=== PATIENT | female | born 1965 | race African-American/Black ===

== ENCOUNTER 2018-08-20 12:15 | Emergency (ER) | payer OTHER ==
[~2018-08-20] VITALS: Ht 170.2 cm; Wt 176.9 kg
[2018-08-20] MEDS ORDERED: KETOROLAC 60 MG/2 ML VIAL. IM ONE (13:00)
[2018-08-20] MEDS ORDERED: MORPHINE SULFATE 4 MG/ML VIAL. IM ONE (13:00)
[2018-08-20] MEDS ORDERED: ONDANSETRON ODT 4 MG TAB.RAPDIS. PO ONE (13:15)
--- NOTE | 2018-08-20 13:25 | PHYS DOC ---
Past Medical History Past Medical History: Diabetes-Type II, Hypertension Past Surgical History: No Surgical History Alcohol Use: None Drug Use: None Adult General Chief Complaint Chief Complaint: LOWER EXT PAIN HPI HPI Patient is a 52 year old female presents to the ED complaining of left-sided back pain. Patient states that she's had pain from the left side of her back that radiates down her left leg. Patient states she feels like its sciatica. Describes the pain as sharp. Rates the pain as 9 out of 10. Patient is able to ambulate without assistance. Denies injury, nausea/vomiting, chest pain, shortness of breath, weakness, paresthesias, Pain/swelling or fever. Review of Systems Review of Systems Constitutional: Denies fever or chills [] Eyes: Denies change in visual acuity, redness, or eye pain [] HENT: Denies nasal congestion or sore throat [] Respiratory: Denies cough or shortness of breath [] Cardiovascular: No additional information not addressed in HPI [] GI: Denies abdominal pain, nausea, vomiting, bloody stools or diarrhea [] : Denies dysuria or hematuria [] Musculoskeletal: Denies back pain or joint pain [] Integument: Denies rash or skin lesions [] Neurologic: Denies headache, focal weakness or sensory changes [] All other systems were reviewed and found to be within normal limits, except as documented in this note. Current Medications Current Medications Current Medications Medications (Trade) Dose Ordered Sig/Julius Start Time Stop Time Status Last Admin Dose Admin Ketorolac Tromethamine (Toradol Im) 60 mg 1X ONCE 08/20/18 13:00 08/20/18 13:01 DC 08/20/18 13:36 60 MG Morphine Sulfate (Morphine Sulfate) 4 mg 1X ONCE 08/20/18 13:00 08/20/18 13:01 DC 08/20/18 13:32 4 MG Ondansetron HCl (Zofran Odt) 4 mg 1X ONCE 08/20/18 13:15 08/20/18 13:16 DC 08/20/18 13:28 4 MG Allergies Allergies Allergies Coded Allergies Type Severity Reaction Last Updated Verified amoxicillin Allergy Severe Swelling 08/20/18 Yes Physical Exam Physical Exam Constitutional: Well developed, well nourished, no acute distress, non-toxic ap pearance. [] HENT: Normocephalic, atraumatic Eyes: PERRLA, EOMI, conjunctiva normal, no discharge. [] Neck: Normal range of motion, no tenderness, supple, no stridor. [] Cardiovascular:Heart rate regular rhythm, no murmur [] Lungs & Thorax: Bilateral breath sounds clear to auscultation [] Abdomen: Bowel sounds normal, soft, no tenderness, no masses, no pulsatile masses. [] Skin: Warm, dry, no erythema, no rash. [] Back: No bony tenderness, pain radiates down left leg in sciatic nerve distribution. FROM. NV intact. No overlying skin changes. no CVA tenderness. [] Extremities: No tenderness, no cyanosis, no clubbing, ROM intact, no edema. [] Neurologic: Alert and oriented X 3, normal motor function, normal sensory function, no focal deficits noted. [] Psychologic: Affect normal, judgement normal, mood normal. [] Current Patient Data Vital Signs Vital Signs Date Time Temp Pulse Resp B/P (MAP) Pulse Ox O2 Delivery O2 Flow Rate FiO2 08/20/18 14:05 150/98 (115) 08/20/18 13:32 18 96 Room Air 08/20/18 12:46 97.7 86 97.7 EKG EKG [] Radiology/Procedures Radiology/Procedures [] Course & Med Decision Making Course & Med Decision Making Pertinent Labs and Imaging studies reviewed. (See chart for details) []No bony tenderness. No imaging warranted. Patient's pain improved in the ED. States she is feeling much better. Patient able to ambulate without assistance. No focal neural deficits. Discussed symptomatic treatment and follow-up with orthopedics if pain persists. Provided contact information/education. Discussed reasons to return to the ED. Patient understands and agrees with plan. Dragon Disclaimer Dragon Disclaimer This electronic medical record was generated, in whole or in part, using a voice recognition dictation system. Departure Departure Impression: Primary Impression: Sciatica Disposition: 01 HOME, SELF-CARE Condition: IMPROVED Referrals: ALLY SCHNEIDER MD (PCP) Patient Instructions: Sciatica Scripts Hydrocodone/Apap 5-325 (NORCO 5-325 TABLET) 1 Each Tablet 1 TAB PO BID for 4 Days, #8 TAB Prov: ELSA LOW 08/20/18 ELSA LOW August 20, 2018 13:25
[2018-08-20] MEDS ORDERED: HYDR-3164 PO (14:03)
[2018-08-20 14:05] VITALS: BP 150/98
== END 2018-08-20 14:10 | disposition home or self-care (01) ==
LOC: ER 12:15
DX: M54.32 Sciatica, left side (principal); I10 Essential (primary) hypertension; E11.9 Type 2 diabetes mellitus without complications; Z88.1 Allergy status to other antibiotic agents
CPT/HCPCS: 96372; 99284; J1885; J2270; Q0162